=== PATIENT | male | born 1990 | race Two or more races ===

== ENCOUNTER 2021-01-30 18:31 | Emergency (ER) | payer OTHER ==
[~2021-01-30] VITALS: Ht 188 cm; Wt 70.3 kg
[2021-01-30 18:35] VITALS: BP 120/83
[2021-01-30] MEDS ORDERED: ACETAMINOPHEN 325 MG TAB PO ONE (18:45)
== END 2021-01-31 01:54 | disposition home or self-care (01) ==
LOC: ER 18:34
DX: U07.1 COVID-19 (principal)
CPT/HCPCS: 36415; 71045; 87426